=== PATIENT | female | born 1930 | race African-American/Black ===

== ENCOUNTER 2020-10-15 13:47 | Emergency (ER) | payer MEDICARE ==
[~2020-10-15] VITALS: Ht 152.4 cm; Wt 68.9 kg
[2020-10-15] MEDS ORDERED: FLEET ENEMA133 ML PR (14:26)
[2020-10-15] MEDS ORDERED: MAGNESIUM CITR296 ML PO (14:26)
== END 2020-10-15 14:41 | disposition home or self-care (01) ==
LOC: FSED 14:15
DX: K59.00 Constipation, unspecified (principal); E86.0 Dehydration; I10 Essential (primary) hypertension
CPT/HCPCS: 99283

== ENCOUNTER 2020-11-18 22:35 | Emergency (ER) | payer MEDICARE, OTHER ==
[~2020-11-18] VITALS: Ht 152.4 cm; Wt 68.9 kg
[~2020-11-18 22:35] MED LIST: FLEET ENEMA133 ML PR; MAGNESIUM CITR296 ML PO
[2020-11-18] MEDS ORDERED: HYDROCODONE/APAP 10MG-325MG TAB ONE (23:27)
[2020-11-18] MEDS ORDERED: FENTANYL 25 MCG/HR PATCH ONE (23:27)
[2020-11-18] MEDS ORDERED: FENTANYL 25 MCG/HR PATCH TOP SCH (23:30)
[2020-11-18] MEDS ORDERED: HYDROCODONE/APAP 10MG-325MG TAB PO ONE (23:30)
== END 2020-11-18 23:58 | disposition home or self-care (01) ==
LOC: ER 23:15
DX: R10.30 Lower abdominal pain, unspecified (principal); G89.3 Neoplasm related pain (acute) (chronic); C78.7 Secondary malignant neoplasm of liver and intrahepatic bile duct; I10 Essential (primary) hypertension